=== PATIENT | female | born 1945 | race Caucasian/White ===

== ENCOUNTER 2020-06-29 11:15 | Emergency (ER) | payer OTHER, MEDICAID ==
[~2020-06-29] VITALS: Ht 170.2 cm; Wt 68.9 kg
[2020-06-29 11:52] VITALS: Ht 170.2 cm; Wt 68.9 kg
[2020-06-29 12:37] LABS: BASOPHIL % 0.4 % (0-2); PLATELET COUNT 228 x10^3mcL (130-400); RED CELL DISTRIBUTION WIDTH 13.6 % (11.5-14.5)
[2020-06-29 12:51] LABS: CALCIUM 9.2 mg/dL (8.5-10.1); CARBON DIOXIDE 27.1 mmol/L (21-32); CHLORIDE SERUM 103 mmol/L (98-107); CREATININE SERUM 0.8 mg/dL (0.6-1.0); GLUCOSE SERUM 94 mg/dL (74-106); POTASSIUM SERUM 3.4 mmol/L (3.5-5.1); SODIUM SERUM 139 mmol/L (136-145)
[2020-06-29 12:57] LABS: UA SPECIFIC GRAVITY <=1.005 (1.005-1.035); microscopic required? YES; urine erythrocyte NEGATIVE (NEGATIVE)
[2020-06-29 13:04] LABS: AMPHETAMINE QUAL UR NONE DETECTED (See below)
[2020-06-29 13:07] LABS: ALBUMIN 3.5 g/dL (3.4-5.0); ALKALINE PHOSPHATASE 70 U/L (46-116); ALT/SGPT 33 U/L (14-59); AST/SGOT 29 U/L (15-37); BILIRUBIN TOTAL 0.58 mg/dL (0.20-1.00); CHOLESTEROL 175 mg/dL (<200); HDL CHOLESTEROL 50 mg/dL (40-60); LIPASE 96 IU/L (73-393); T4(THYROXINE) 8.8 ug/dL (4.7-13.3); TOTAL PROTEIN, SERUM 7.3 g/dL (6.4-8.2)
[2020-06-29 14:51] VITALS: BP 117/63
== END 2020-06-29 14:51 | disposition home or self-care (01) ==
LOC: ED 11:15
PROVIDERS: Emergency Medicine
DX: F41.9 Anxiety disorder, unspecified (principal); I45.2 Bifascicular block; Z90.49 Acquired absence of other specified parts of digestive tract
CPT/HCPCS: 83880; Q0092

== ENCOUNTER 2020-06-30 11:25 | Emergency (ER) | payer OTHER, MEDICAID ==
[~2020-06-30] VITALS: Ht 170.2 cm; Wt 75.7 kg
[2020-06-30 11:45] VITALS: Ht 170.2 cm; Wt 75.7 kg
[2020-06-30 13:27] VITALS: BP 139/52
== END 2020-06-30 13:28 | disposition left against medical advice (07) ==
LOC: ED 11:25
DX: R00.2 Palpitations (principal); R00.8 Other abnormalities of heart beat; I45.2 Bifascicular block; F41.9 Anxiety disorder, unspecified
CPT/HCPCS: 82962

== ENCOUNTER 2020-07-01 08:51 | Emergency (ER) | payer OTHER, MEDICAID ==
[~2020-07-01] VITALS: Ht 170.2 cm; Wt 68.5 kg
[2020-07-01 09:00] VITALS: Ht 170.2 cm; Wt 68.5 kg
[2020-07-01 10:31] VITALS: BP 118/57
== END 2020-07-01 10:31 | disposition home or self-care (01) ==
LOC: ED 08:51
DX: F41.9 Anxiety disorder, unspecified (principal)

== ENCOUNTER 2020-07-06 12:18 | Emergency (ER) | payer OTHER, MEDICAID ==
[~2020-07-06] VITALS: Ht 170.2 cm; Wt 68.5 kg
[2020-07-06 12:32] VITALS: Ht 170.2 cm; Wt 68.5 kg
[2020-07-06 16:28] VITALS: BP 153/78
== END 2020-07-06 16:28 | disposition home or self-care (01) ==
LOC: ED 12:18
DX: F41.9 Anxiety disorder, unspecified (principal); E78.00 Pure hypercholesterolemia, unspecified; Z90.49 Acquired absence of other specified parts of digestive tract

== ENCOUNTER 2020-07-19 09:12 | Emergency (ER) | payer OTHER, MEDICAID ==
[~2020-07-19] VITALS: Ht 170.2 cm; Wt 75.7 kg
[2020-07-19 09:15] VITALS: Ht 170.2 cm; Wt 75.7 kg
[2020-07-19 10:38] LABS: CALCIUM 9.2 mg/dL (8.5-10.1); CHLORIDE SERUM 105 mmol/L (98-107); CREATININE SERUM 0.9 mg/dL (0.6-1.0); GLUCOSE SERUM 99 mg/dL (74-106); POTASSIUM SERUM 4.4 mmol/L (3.5-5.1); SODIUM SERUM 139 mmol/L (136-145)
[2020-07-19 10:43] LABS: ALBUMIN 3.5 g/dL (3.4-5.0); ALKALINE PHOSPHATASE 91 U/L (46-116); ALT/SGPT 27 U/L (14-59); AST/SGOT 24 U/L (15-37); BILIRUBIN TOTAL 0.42 mg/dL (0.20-1.00); TOTAL PROTEIN, SERUM 7.3 g/dL (6.4-8.2)
[2020-07-19 11:44] VITALS: BP 123/71
== END 2020-07-19 11:44 | disposition home or self-care (01) ==
LOC: ED 09:12
PROVIDERS: Emergency Medicine
DX: F41.9 Anxiety disorder, unspecified (principal); Z90.49 Acquired absence of other specified parts of digestive tract

== ENCOUNTER 2020-08-06 11:36 | Emergency (ER) | payer OTHER, MEDICAID ==
[~2020-08-06] VITALS: Ht 170.2 cm; Wt 69.4 kg
[2020-08-06 11:48] VITALS: Ht 170.2 cm; Wt 69.4 kg
[2020-08-06 15:20] VITALS: BP 147/78
== END 2020-08-06 15:20 | disposition home or self-care (01) ==
LOC: ED 11:36
DX: F41.9 Anxiety disorder, unspecified (principal); R42 Dizziness and giddiness; Z98.890 Other specified postprocedural states

== ENCOUNTER 2020-09-19 16:05 | Emergency (ER) | payer OTHER, MEDICAID ==
[~2020-09-19] VITALS: Ht 162.6 cm; Wt 68.0 kg
[2020-09-19 17:07] LABS: BASOPHIL % 1.4 % (0-2); PLATELET COUNT 202 x10^3mcL (130-400); RED CELL DISTRIBUTION WIDTH 13.7 % (11.5-14.5)
[2020-09-19 17:08] LABS: CALCIUM 9.6 mg/dL (8.5-10.1); CARBON DIOXIDE 30.3 mmol/L (21-32); CHLORIDE SERUM 103 mmol/L (98-107); CREATININE SERUM 0.6 mg/dL (0.6-1.0); GLUCOSE SERUM 89 mg/dL (74-106); POTASSIUM SERUM 4.3 mmol/L (3.5-5.1); SODIUM SERUM 138 mmol/L (136-145)
[2020-09-19 17:12] LABS: ALKALINE PHOSPHATASE 80 U/L (46-116); ALT/SGPT 25 U/L (14-59); AST/SGOT 39 U/L (15-37); BILIRUBIN TOTAL 0.5 mg/dL (0.20-1.00); TOTAL PROTEIN, SERUM 7.9 g/dL (6.4-8.2)
[2020-09-19 20:40] VITALS: BP 155/72
== END 2020-09-19 20:40 | disposition home or self-care (01) ==
LOC: ED 16:05
DX: N39.0 Urinary tract infection, site not specified (principal); Z90.49 Acquired absence of other specified parts of digestive tract